=== PATIENT | male | born 1995 | race Two or more races ===

== ENCOUNTER 2018-10-29 10:12 | Emergency (ER) | payer SELFPAY ==
[~2018-10-29] VITALS: Ht 190.5 cm; Wt 152.0 kg
--- NOTE | 2018-10-29 10:34 | RAD ---
Single view of the chest. 10/29/2018 10:25 AM Indication: SHORT OF BREATH WITH COUGH TIMES 2 DAYS Comparison: None Findings: There is no focal consolidation. There is no pleural effusion or pneumothorax. The cardiomediastinal silhouette and pulmonary vasculature are within normal limits. No acute osseous abnormalities are seen. Impression: No evidence of acute cardiopulmonary process. Electronically signed by: Edgar Savage MD (10/29/2018 10:31 AM) [id number]
--- NOTE | 2018-10-29 10:40 | PHYS DOC ---
Past History Past Medical History: Asthma Past Surgical History: Tonsillectomy Additional Smoking Information: PACK/WEEK Alcohol Use: Rarely Drug Use: None Adult General Chief Complaint Chief Complaint: SHORTNESS OF BREATH [facility] HPI 23-year-old male presents with cough and shortness of breath. For the last 3 days, the patient has had minimally productive cough and shortness of breath. It seems to be the same with and without exertion. He is feeling slightly better today. He denies fever home. He is a 2-3 cigarettes a day smoker. He has a history of asthma as a child, but has not used inhaler for several years. He denies chest pain or diaphoresis. Review of Systems Review of Systems Constitutional: Denies fever or chills [] Eyes: Denies change in visual acuity, redness, or eye pain [] HENT: Denies nasal congestion or sore throat [] Respiratory: Cough with shortness of breath [] Cardiovascular: No additional information not addressed in HPI [] GI: Denies abdominal pain, nausea, vomiting, bloody stools or diarrhea [] : Denies dysuria or hematuria [] Musculoskeletal: Denies back pain or joint pain [] Integument: Denies rash or skin lesions [] Neurologic: Denies headache, focal weakness or sensory changes [] Endocrine: Denies polyuria or polydipsia [] All other systems were reviewed and found to be within normal limits, except as documented in this note. Allergies Allergies Allergies Coded Allergies Type Severity Reaction Last Updated Verified No Known Drug Allergies 10/29/18 No Physical Exam Physical Exam Constitutional: Well developed, well nourished, no acute distress, non-toxic appearance. [] HENT: Normocephalic, atraumatic, bilateral external ears normal, oropharynx moist, no oral exudates, nose normal. [] Eyes: PERRLA, EOMI, conjunctiva normal, no discharge. [] Neck: Normal range of motion, no tenderness, supple, no stridor. [] Cardiovascular:Heart rate regular rhythm, no murmur [] Lungs & Thorax: Bilateral breath sounds with end expiratory wheezing, worse on the left.[] Abdomen: Bowel sounds normal, soft, no tenderness, no masses, no pulsatile masses. [] Skin: Warm, dry, no erythema, no rash. [] Back: No tenderness, no CVA tenderness. [] Extremities: No tenderness, no cyanosis, no clubbing, ROM intact, no edema. [] Neurologic: Alert and oriented X 3, normal motor function, normal sensory function, no focal deficits noted. [] Psychologic: Affect normal, judgement normal, mood normal. [] Current Patient Data Vital Signs Vital Signs Date Time Temp Pulse Resp B/P (MAP) Pulse Ox O2 Delivery O2 Flow Rate FiO2 10/29/18 10:18 97.9 89 16 98 Room Air EKG EKG [] Radiology/Procedures Radiology/Procedures [] Impressions: Single view of the chest. 10/29/2018 10:25 AM Indication: SHORT OF BREATH WITH COUGH TIMES 2 DAYS Comparison: None Findings: There is no focal consolidation. There is no pleural effusion or pneumothorax. The cardiomediastinal silhouette and pulmonary vasculature are within normal limits. No acute osseous abnormalities are seen. Impression: No evidence of acute cardiopulmonary process. Electronically signed by: Edgar Scanlon MD (10/29/2018 10:31 AM) [id number] DICTATED AND SIGNED BY: EDGAR SCANLON MD DATE: 10/29/18 1031 CC: KENNY GREEN DO; PCP,NO ~ Course & Med Decision Making Course & Med Decision Making Pertinent Labs and Imaging studies reviewed. (See chart for details) Patient chest x-ray is unremarkable. I have given him an albuterol nebulizer treatment due to his wheezing. I will treat him as an asthma exacerbation with 50 mg of prednisone for the next 3 days. We will give a dose in the ED. [] Dragon Disclaimer Dragon Disclaimer This electronic medical record was generated, in whole or in part, using a voice recognition dictation system. Departure Departure: Impression: Primary Impression: Asthma exacerbation Disposition: HOME, SELF-CARE Condition: STABLE Referrals: PCP,NO (PCP) Patient Instructions: Asthma, Adult Scripts Albuterol Sulfate (VENTOLIN HFA INHALER) 18 Gm Hfa.aer.ad 1-2 PUFF IH PRN Q4HRS PRN for FOR ASTHMA, #1 INHALER 0 Refills Prov: KENNY GREEN DO 10/29/18 Prednisone (PREDNISONE) 10 Mg Tablet 50 MG PO DAILY for asthma for 3 Days, #15 TAB Prov: KENYN GREEN DO 10/29/18 Problem Qualifiers Primary Impression: Asthma exacerbation Asthma severity: mild Asthma persistence: intermittent Qualified Codes: J45.21 - Mild intermittent asthma with (acute) exacerbation KENNY GREEN DO Oct 29, 2018 10:40
[2018-10-29] MEDS ORDERED: ALBUTEROL SULFATE 2.5 MG/3 ML NEBU. NEB ONE (10:45)
[2018-10-29 10:56] VITALS: BP 135/55
[2018-10-29] MEDS ORDERED: ALBU2.5V8 IH (11:06)
[2018-10-29] MEDS ORDERED: PRED-220 PO (11:06)
[2018-10-29] MEDS ORDERED: predniSONE 10 MG TABLET PO ONE (11:30)
== END 2018-10-29 11:20 | disposition home or self-care (01) ==
LOC: ER 10:12
DX: J45.21 Mild intermittent asthma with (acute) exacerbation (principal); F17.210 Nicotine dependence, cigarettes, uncomplicated
CPT/HCPCS: 71046; 94640; 99283; J7512; J7613